=== PATIENT | male | born 1975 | race Two or more races ===

== ENCOUNTER 2025-06-03 15:41 | Emergency (ER) | payer MEDICAID, OTHER ==
[~2025-06-03] VITALS: Ht 175.3 cm; Wt 227.2 kg
--- NOTE | 2025-06-03 15:46 | ED.PDOC ---
Psychiatric HPI Comments 50 y.o male with medical history of CHF, hypertension, hyperlipidemia, diabetes, presents to the ED via EMS for an evaluation of SI. Patient reports yesterday he became feeling suicidal, states he has a plan of taking all his prescribed medication out once and plans to end his life. Patient has been placed in his psychiatric holds and Hospital in the past due to SI. Patient denies any homicidal ideation, pain, fever, chills, nausea, vomiting, shortness of breath. patient is ambulatory on scene but gets around with a wheelchair due to imbalance. Patient does have a history of mental illness in his on medication. Time Seen by MD: 15:47 Reviewed Notes: Nurses Notes, Philosophy Faculty Member Notes, Medications, Allergies Information Source: Patient Mode of Arrival: EMS Severity: Unable to Care for Self, Unable to Control Self Severity of Pain: None Severity of Mental Status: Moderate Severity of Symptoms: Moderate Timing: Days (1) Duration: Since onset Presents with: Suicidal Ideation Ingestion: None Circumstance: Medical Clearance Current substance abuse: None Stressors: None History of: Suicidal Attempt Past Medical History PAST MEDICAL HISTORY: Anxiety, CHF, Depression, DM, High Lipids, HTN Surgical History: Denies all surgeries Family History Family History: Reviewed,noncontributory to illness Social History Smoker: Non-Smoker Alcohol: Denies ETOH Use Drugs: Denies Drug Use Lives In: Home Constitutional: denies: chills, diaphoresis, fatigue, fever, malaise, sweats, weakness, others EENTM: denies: blurred vision, double vision, ear bleeding, ear discharge, ear drainage, ear pain, ear ringing, eye pain, eye redness, hearing loss, mouth pain , mouth swelling, nasal discharge, nose bleeding, nose congestion, nose pain, photophobia, tearing, throat pain, throat swelling, voice changes, others Respiratory: denies: cough, hemoptysis, orthopnea, SOB at rest, shortness of breath, SOB with excertion, stridor, wheezing, others Cardiovascular: denies: chest pain, dizzy spells, diaphoresis, Dyspnea on exertion, edema, irregular heart beat, left arm pain, lightheadedness, palpitations, PND, syncope, others Gastrointestinal: denies: abdomen distended, abdominal pain, blood streaked bowels, constipated, diarrhea, dysphagia, difficulty swallowing, hematemesis, melena, nausea, poor appetite, poor fluid intake, rectal bleeding, rectal pain, vomiting, others Genitourinary: denies: burning, dysuria, flank pain, frequency, hematuria, incontinence, penile discharge, penile sore, pain, testicle pain, testicle swelling, urgency, others Neurological: denies: dizziness, fainting, headache, left sided numbness, left sided weakness, numbness, paresthesia, pre-existing deficit, right sided numbness, right sided weakness, seizure, speech problems, tingling, tremors, weakness, others Musculoskeletal: denies: back pain, gout, joint pain, joint swelling, muscle pain, muscle stiffness, neck pain, others Integumetry: denies: bruises, change in color, change in hair/nails, dryness, laceration, lesions, lumps, rash, wounds, others Allergic/Immunocompromised: denies: Difficulty Healing, Frequent Infections, Hives, Itching, others Hematologic/Lymphatic: denies: anemia, blood clots, easy bleeding, easy bruising, swollen glands, others Endocrine: denies: excessive hunger, excessive sweating, excessive thirst, excessive urination, flushing, intolerance to cold, intolerance to heat, unexplained weight gain, unexplained weight loss, others Psychiatric: reports: suicidal; denies: anxiety, bipolar disorder, depression, hopeless, panic disorder, schizophrenia, sleepless, others All Other Systems: Reviewed and Negative Physical Exam General Appearance: Obese HEENT: Normal ENT Inspection, Pharynx Normal, TMs Normal Neck: Full Range of Motion, Non-Tender, Normal, Normal Inspection Respiratory: Chest Non-Tender, Lungs Clear, No Accessory Muscle Use, No Respiratory Distress, Normal Breath Sounds Cardiovascular: No Edema, No JVD, No Murmur, No Gallop, Normal Peripheral Pulses, Regular Rate/Rhythm Breast Exam: Deferred Gastrointestinal: No Organomegaly, Non Tender, No Pulsatile Mass, Normal Bowel Sounds, Soft Genitalia: Deferred Pelvic: Deferred Rectal: Deferred Extremities: No calf tenderness, No pedal edema Musculoskeletal : Apperance: Normal Neurologic: Alert Cerebellar Function: NOT DONE Reflexes: NOT DONE Skin: Dry, Normal Color, Warm Peripheral Pulses: 3+ Radial (R), 3+ Radial (L) Lymphatic: No Adenopathy Was a procedure done? Was a procedure done?: No Psych Differential Dx Psych. Differential Dx: Anxiety, Suicidal Suicidal Differential Dx: Depression X-Ray, Labs, Meds, VS Vital Signs Date Time Temp Pulse Resp B/P (MAP) Pulse Ox O2 Delivery O2 Flow Rate FiO2 06/03/25 15:52 98.6 84 18 136/82 95 98.6 Patient alert. Obese. Has suicidal ideation. Vitals stable. Answering questions. History of psychiatric illness. Medically cleared. Psychiatric evaluation. Time of 1ST Reevaluation: 15:45 Reevaluation 1ST: Unchanged Patient Education/Counseling: Diagnosis, Treatment, Prognosis Family Education/Counseling: No Family Present Departure 1 Departure Time of Disposition: 16:07 Impression: Primary Impression: Suicidal ideation Disposition: 30 STILL A PATIENT Condition: Good Critical Care Note Critical Care Time?: No Stability Stability form required: No I personally scribed for ENZO GOMEZ MD ([email or web address]) on 06/03/25 at 15:46. Electronically submitted by Anuskha Cooley ([facility]). ENZO GOMEZ MD Jun 03, 2025 15:46
[2025-06-03 21:14] LABS: Phencyclidine Screen, Urine Pos (NEGATIVE)
[2025-06-03 21:17] LABS: Amphetamine Screen, Urine Neg (NEGATIVE); Barbiturate Scree,Urine Neg (NEGATIVE); Benzodiazephine Screen, Urine Neg (NEGATIVE); Cannabinoid Screen, Urine Neg (NEGATIVE); Cocaine Screen, Urine Neg (NEGATIVE); Opiate Scree,Urine Neg (NEGATIVE)
--- NOTE | 2025-06-03 22:42 | DVHINCON2 ---
Date of Service if different f: Jun 03, 2025 Time of Service: 22:38 Consult Consult Note PSYCHIATRY ED NEW CONSULT HPI: 50 yo pt with PPH of depression and anxiety presents to ED BIBA for safety, psychiatric stabilization, and possible med initiation/optimization in setting of depression, anxiety, and passive SI. Psychiatry consulted for safety evaluation and recommendations in context of current presentation Pt reports over past several weeks experiencing worsening depressed mood, hopelessness/helplessness, negative thoughts, isolation/withdrawn, loss of interest, decreased energy, poor sleep, low self-worth, amotivation, and unspecified anxiety symptoms although some symptoms appear chronic in nature. Also intermittent fleeting SI with plan to OD on meds although no/minimal intent. Identifies primary stress as chronic medical conditions that interferes with ADL/IADLs. Denies HI/AVH/paranoia/catatonic/manic/dissociative symptoms. Denies recent hx of impulsivity or engaging in risky/reckless behaviors Does not have active outpt MH services established at this time Currently not on any psychotropic agents, unknown prior psych med trials OPAL hx: Denies ETOH, THC or IDU, remote hx of THC/PCP dependency SH: Single, no children, unemployed/ssii, lives by self/roommates, limited support system noted (immediate family). Unknown trauma hx FH: Denies FH of psych hospitalizations, suicide attempts, or completed suicides PMH: +LEONA. + CHF/HTN/DM/COL. No hx of seizures/TBI, HIV/hep C, or recent head injuries, allergic to lisinopril Denies hx of SIB/SA/PSG. Several prior psych hospitalizations/5150 holds - [facility]. Denies history of vi olence, aggression, or assaultive behaviors. Denies any legal problems. Does not have access to firearms. No acute safety concerns noted during encounter MSE: General Appearance/Behavior: Alert/awake; appears stated age, obese/ overweight, fair grooming/hygiene; calm/polite and cooperative, fair eye contact, no PMA/PMR Speech: coherent, rrr Thought Process: L/L/GD Thought Content: Abnormal Thoughts/Perceptions: denies dissociative symptoms Homicidality / Violent Thoughts: adamantly denies HI Suicidality: +SI Hallucinations: denies AVTH Delusions: denies paranoia, persecutory, or grandiose delusions Obsessions /compulsions: None Judgment/Insight: fair/fair Mood & Affect: "depressed" with mood-congruent, somewhat restricted/appropriate Orientation: oriented x 3 Attention/Concentration: appears intact Cognition: grossly intact Assessment: 50 yo pt with PPH of depression and anxiety presents to ED BIBA for safety, psychiatric stabilization, and possible med initiation/optimization in setting of depression, anxiety, and passive SI Pt currently expressing SI with mild MDD symptoms, untreated. Not on any psychotropics which may be contributing to current symptoms. No outpt MH services at present. Medically cleared in ED Acute safety risk remains slightly elevated and is appropriate for inpatient psychiatric admission for further safety, psychiatric stabilization, and possible medication initiation/optimization. Pt willing to transfer to inpt psych facility voluntarily. Consider 5150 hold for DTS ONLY if needed for transfer or if no voluntary beds are available Primary Diagnosis: Adjustment disorder with depressed mood and anxiety. Depressive disorder unspecified. Recommend VOL transfer to inpt psych facility for higher level of care 1:1 sitter is not recommended Recommend start Sertraline 50 mg qd - first dose now Risks/benefits/alternative treatments discussed, informed consent provided by pt If patient later refuses voluntary hospitalization/ requests to be discharged from ED prior to transfer, pt can be safely discharged WITHOUT psych reassessment/5150 evaluation Pt verbalized understanding and is receptive to above tx plan This case was discussed with ED nurse/provider and all parties in agreement with above tx plan Ciaran Ace MD Plan discussed with: Patient CIARAN ACE MD Jun 03, 2025 22:42
[2025-06-04] MEDS: ACETAMINOPHEN 500 MG TAB or CAP PO ONE (00:08)
[2025-06-04] MEDS: SERTRALINE HCL 50 MG TAB PO ONE (00:08)
[2025-06-05 08:19] VITALS: PULSE 74; O2SAT 97
[2025-06-05 21:10] VITALS: RESP 83; O2SAT 92
[2025-06-05] MEDS: MELATONIN 5 MG TAB PO ONE (21:12)
[2025-06-05] MEDS: SERTRALINE HCL 50 MG TAB PO ONE ×2 (21:13)
[2025-06-06 07:35] VITALS: BP 102/53; PULSE 83; RESP 18; TEMP 98.1; O2SAT 99
== END 2025-06-06 08:56 | disposition home or self-care (01) ==
LOC: ER 15:41 → EDBD 15:41 → ER 06-06 08:46
DX: R45.851 Suicidal ideations (principal); I11.0 Hypertensive heart disease with heart failure; I50.9 Heart failure, unspecified; E78.5 Hyperlipidemia, unspecified; F32.A Depression, unspecified; F41.9 Anxiety disorder, unspecified; E11.9 Type 2 diabetes mellitus without complications; E66.9 Obesity, unspecified; Z68.45 Body mass index [BMI] 70 or greater, adult
CPT/HCPCS: 80307